=== PATIENT | female | born 1975 | race Caucasian/White ===

== ENCOUNTER 2024-06-22 01:37 | Observation (INO) | payer BC, SELFPAY ==
[2024-06-21 18:07] VITALS: BP 158/90
[2024-06-21 18:30] LABS: % Basophils 0.5 % (0-2); % Eosinophils 0.3 % (0-6); % Immature Granulocytes 0.3 % (0-0.5); % Lymphocytes 13.7 % (20.5-51.1); % Monocytes 4.6 % (1.7-9.3); % Neutrophils 80.6 % (42.2-75.2); Absolute Basophils 0.1 10^3/uL (0-0.2); Absolute Lymphocytes 1.4 10^3/uL (1.2-3.4); Absolute Monocytes 0.5 10^3/uL (0.1-0.6); Absolute Neutrophils 8.1 10^3/uL (1.4-6.5); Hematocrit 47.7 % (37.0-47.0); Mean Corp Hgb Conc. 33.5 g/dL (33.0-37.0); Mean Corpuscular Hgb 30.8 pg (27.0-31.0); Mean Corpuscular Volume 91.7 fL (81.0-99.0); Mean Platelet Volume 9.4 fL (7.4-10.4); Nucleated Red Blood Cells % 0 %; Platelet Count 305 10^3/uL (130-400); Red Cell Dist. Width 12.8 % (11.5-14.5)
[2024-06-21 18:31] LABS: Urine Albumin 2+ (Neg - Trace); Urine Bilirubin 3+ (Negative); Urine Character Slightly Cloudy (Clear); Urine Glucose Negative (Negative); Urine Ketone 2+ (Negative); Urine Leukocyte Negative (Negative); Urine Nitrite Positive (Negative); Urine Occult Blood 4+ (Negative); Urine Urobilinogen 2+ (Neg - 1+)
[2024-06-21 18:39] LABS: Urine Color Orange
[2024-06-21 18:56] LABS: ALT (SGPT) 37 U/L (0-35); AST (SGOT) 27 U/L (14-36); Albumin 4.6 g/dl (3.5-5.0); Alkaline Phosphatase 116 U/L (38-126); Blood Urea Nitrogen 12 mg/dl (7-17); Carbon Dioxide 24 mmol/L (22-30); Chloride 103 mmol/L (98-107); Glucose 105 mg/dl (70-99); Lipase 137 U/L (23-300); Sodium 139 mmol/L (135-145); Total Bilirubin 1.2 mg/dl (0.2-1.3); Total Protein 7.6 g/dl (6.3-8.2); eGFR > 60.00
[2024-06-21 19:01] LABS: Urine Red Blood Cell 26-30 /HPF (0-2); Urine Squamous Cell >30 /LPF (Few)
[2024-06-21 19:02] LABS: Urine Bacteria Few (Negative)
--- NOTE | 2024-06-21 20:53 | ED.GENMED ---
History of Present Illness
General
Chief Complaint: Urinary Symptoms
Source: patient and spouse
Exam Limitations: none
Time Seen by Provider: 06/21/24 20:01
Nursing documentation reviewed up to this point in time: agreed with
History of Present Illness
History of Present Illness:
This is a pleasant 48-year-old female who presents to the emergency department with subacute urinary tract infection. she states that she has been seen by an outside hospital on several occasions and started on antibiotics. First Levaquin, then
cefpodoxime and currently she is chcf through her course of Macrobid. She states that she has been having diffused abdominal pain. She had CAT scan at OSH which she states was negative. She is seeing Dr. Deleon,Uro-planer operator, who started
her on the Macrobid. Patient admits to a 26 pound weight loss over the last 3 weeks. Patient is concerned because she was lightheaded and passed out today.
Review of Systems
Review of Systems
Allergies reviewed?: Yes
All Other Systems: ROS reviewed and negative except as documented in HPI and ROS
Constitutional: Reports fever and weight loss
EENT: Reports no symptoms
Respiratory: Reports no symptoms
Cardiac: Reports no symptoms
ABD/GI: Reports abdominal pain and diarrhea
: Reports dysuria, frequency and urgency
Musculoskeletal: Reports no symptoms
Skin: Reports no symptoms
Neurological: Reports no symptoms
Endocrine: Reports no symptoms
Hematologic/Lymphatic: Reports no symptoms
Psychiatric: Reports anxiety
Phy Exam
General Physical Exam
General Presentation: mild distress
General age: appears older than age
General Skin: warm
General Habitus: normal
General Mental: alert
General Hydration: appears well hydrated
ENT Exam
ENT Exam: EOMI, pharynx normal, neck supple and normocephalic
Eye Exam
Eye Exam: PERRL, cornea clear and conjunctiva normal
Cardiovascular Exam
Cardiovascular Exam: regular rate/rhythm and no edema
Pulmonary Exam
Pulmonary Exam: lungs clear, no respiratory distress, no rales, no crackles, no rhonchi, no stridor, no wheezing and no cough
Gastrointestinal Exam
Gastrointestinal Exam: normal bowel sounds and tender
Neurological Exam
Neurological Exam: alert and oriented x3
Musculoskeletal Exam
Musculoskeletal Exam: full ROM
Skin Exam
Skin Exam: normal color, warm/dry, no rash and no petechia
Psychiatric Exam
Psychiatric Exam: anxious
Course
Orders/Labs/Results
Orders:
Orders
06/21/24 18:23
Complete Blood Count/With Diff Urgent
Comprehensive Metabolic Panel Urgent
HCG, Serum Qualitative Screen Urgent
Comment: ADD ON
Lipase Urgent
Urinalysis Reflex To Culture Urgent
Date Specimen was Collected: 06/21/24
Time Specimen was Collected: 18:13
Urine Microscopic Reflex Cult Urgent
Urine Culture Urgent
VANESSA Source: U
Specimen Description:
Date Specimen was Collected: 06/21/24
Time Specimen was Collected: 18:13
06/21/24 20:47
Straight cath- Treatment ONCE
06/21/24 20:49
CT Abd/pelvis W Iv Cont Urgent
Comment:
Reason For Exam: Diffuse abdominal pain with history subacute UTI
06/21/24 20:53
HYDROmorphone [Dilaudid] 1 mg IV NOW STA
Ondansetron Injectable [Zofran] 4 mg IV NOW STA
06/21/24 21:11
Add On- LAB Urgent
Tests Added?: hcg
06/21/24 21:52
Urinalysis Reflex To Culture Urgent
Date Specimen was Collected: 06/21/24
Time Specimen was Collected: 21:50
Urine Microscopic Reflex Cult Urgent
Urine Culture Urgent
VANESSA Source: U
Specimen Description:
Date Specimen was Collected: 06/21/24
Time Specimen was Collected: 21:50
06/21/24 21:57
Morphine Sulfate 4 mg .ROUTE .STK-MED ONE
06/21/24 21:58
Morphine Sulfate 4 mg IV NOW STA
06/21/24 23:46
Metoclopramide [Reglan] 10 mg IV NOW STA
Morphine Sulfate 4 mg IV NOW STA
Nitrofurantoin Monohydrate [Macrobid] 100 mg PO NOW STA
06/22/24 00:35
Electrocardiogram (*1) Urgent
Reason for Study: Syncope
EKG- Treatment ONCE
06/22/24 01:18
diazePAM [Valium Injection] 5 mg IV NOW STA
06/22/24 01:19
Admit/Transfer Patient As Directed
Co-Sign Provider:
Level of Care: Observation services
Assign to:: Medical/Surgical
Physician / Group: Roberto
Diagnosis: Interstitial Cystitis, Uncontrolled Anxiety
Code Status As Directed
Resuscitation Status: Full Code
PRN Pain Medication Management As Directed
May give lesser potent ordered pain med per pt: Yes
preference::
Protocol:: Medication orders for pain may be administered in a
manner that supports deferring to patient preference
when the pt is:
- Requesting an ordered lesser potent pain medication.
Least to most potent pain medications are defined
as: acetaminophen < NSAID < tramadol < opioids
(morphine, oxycodone, hydromorphone).
- Requesting a lesser dose of the same medication IF
ORDERED.
- Requesting a less intrusive route of administration
if both routes are prescribed by the provider (PO <
IV).
06/22/24 02:00
Flush (0.9% Sodium Chloride) [Flush (Nss)] See Dose Instructions IV PER PROTOCOL
06/22/24 02:54
Acetaminophen [Tylenol] 650 mg PO Q4HPRN PRN
HYDROmorphone [Dilaudid] 0.5 mg IV Q4HPRN PRN
Lactated Ringers [Lr] 1,000 ml IV 100 mls/hr
Lorazepam [Ativan] 1 mg PO Q6HPRN PRN
Ondansetron Injectable [Zofran] 4 mg IV Q6HPRN PRN
06/22/24 02:54
Consult Notification Routine
Specialty to Notify: Psychiatry
Date consulting provider notified: 06/22/24
Time consulting provider notified: 07:14
Notified:: Provider
Comment: Dr. Moe notified via tiger text
PSYCHIATRY CONSULT Routine
Consulting Provider: Joan Malcolm
Was physician already notified: No
Reason for consult: Uncontrolled Anxiety
Activity As Directed
Activity Level: Ambulate
I/O [Intake/ Output] As Directed
Frequency: Per unit guidelines
Vital Signs As Directed
Frequency: Per unit guidelines
DX Deep Vein Thrombosis Video Routine
06/22/24 Breakfast
Regular
At Your Request: Full Participation
06/22/24 07:04
Basic Metabolic Panel IN AM
Complete Blood Count/No Diff IN AM
06/22/24 08:00
Escitalopram Oxalate [Lexapro] 20 mg PO DAILY
06/22/24 18:00
Enoxaparin Sodium [Lovenox] 40 mg SC QPM
06/22/24 22:00
Quetiapine Fumarate [Seroquel] 100 mg PO HS
Abnormal Lab Results
06/21/24 06/21/24
18:23 21:52
Hct 47.7 H %
(37.0-47.0)
Absolute Neuts (auto) 8.1 H 10^3/uL
(1.4-6.5)
Neutrophils % 80.6 H %
(42.2-75.2)
Lymphocytes % 13.7 L %
(20.5-51.1)
Glucose 105 H mg/dl
(70-99)
ALT 37 H U/L
(0-35)
Urine Ketones 2+ A 2+ A
(Negative) (Negative)
Ur Occult Blood Reflex 4+ A 1+ A
(Negative) (Negative)
Urine Nitrite (Reflex) Positive A Positive A
(Negative) (Negative)
Urine Bilirubin 3+ A 3+ A
(Negative) (Negative)
Urine Urobilinogen 2+ A 2+ A
(Neg - 1+) (Neg - 1+)
Urine RBC 26-30 A /HPF
(0-2)
Urine WBC (Reflex) 11-15 A /HPF
(0-5)
Urine Bacteria (Reflex) Few A Few A
(Negative) (Negative)
Urine Albumin (Reflex) 2+ A 2+ A
(Neg - Trace) (Neg - Trace)
06/21/24 18:23
06/21/24 18:23
Vital Signs
Initial and Last Documented VS:
Initial Vital Signs
Temp Pulse Resp BP Pulse Ox
98.3 F 99 18 158/90 97
06/21/24 18:07 06/21/24 18:07 06/21/24 18:07 06/21/24 18:07 06/21/24 18:07
Last Documented Vital Signs
Temp Pulse Resp BP Pulse Ox
98.3 F 69 16 136/79 96
06/23/24 07:30 06/23/24 07:30 06/23/24 07:30 06/23/24 07:30 06/23/24 07:30
*Critical Care Note
Total Time (30-74mins, 75-104mins- exclusive of procedures): Not Applicable
Update Note
Update Note:
PROCEDURES: CT Abd/pelvis W Iv Cont
CLINICAL INDICATION: Diffuse abdominal pain with history subacute UTI . Nausea. Diarrhea. Hematuria.
COMPARISON: None.
FINDINGS:
Lower Chest:
Lung bases clear. No pleural effusion. Nonspecific trace pericardial effusion.
Abdomen:
Liver: Within normal limits.
Gallbladder: Absent.
Bile Ducts: No bile duct dilatation.
Pancreas: Within normal limits.
Spleen: Normal in size.
Adrenals: No adrenal mass.
Kidneys/Ureters: No renal or ureteral calculus. No bladder calculus. No obstructive uropathy. Few Subcentimeter renal cysts.
Bowel: Limited by lack of oral contrast. No obstruction or wall thickening.
Appendix: Absent.
Peritoneum: No ascites or free air.
Vessels: No aortic aneurysm.
Retroperitoneum: No retroperitoneal periaortic mass or adenopathy.
Abdominal Wall: No anterior abdominal wall hernia.
Pelvis:
No free fluid or focal collection. No inflammatory reaction. No sidewall adenopathy or mass.
Uterus and adnexal regions are unremarkable.
Intrauterine contraceptive device in place.
Bones:
No suspicious lesions.
IMPRESSION:
No renal, ureteral, or bladder calculus. No obstructive uropathy.
No specific bowel abnormality identified given limitations from lack of oral contrast.
ED Attending Note
-
Portions of this chart may have been created with voice recognition software.� Occasional wrong word or��sound alike� substitutions may have occurred due to the inherent limitations of voice recognition software.
Discharge Plan
Departure
Patient Disposition: Admit
Date of Disposition: 06/21/24
Time of Disposition: 23:47
Admit to: Med/Surg
Presentation/result/management discussed w/ accepting MD/DO: Hospitalist
Condition: Fair
Discharge Problem:
UTI (urinary tract infection), Abdominal pain, Nausea & vomiting, Anxiety
Interventions
Interventions:
*Risk Screen - Suicide Last Done: 06/22/24 03:11
*General Assessment Last Done: 06/21/24 18:07
*Neglect/Abuse Screening Last Done: 06/21/24 18:07
ED- Fall Risk Assessment Last Done: 06/22/24 02:50
*ED COVID-19 Vaccine History Last Done: 06/22/24 03:11
*Nursing Disposition Last Done: 06/22/24 02:50
ED-Female Genitourinary Assessment Last Done: 06/21/24 21:07
Discharge Date and Time
Discharge Date/Time: 06/22/24 02:51
[2024-06-21] MEDS: DILAUDID 1 MG IV (21:10)
[2024-06-21] MEDS: ZOFRAN 4 MG IV (21:10)
[2024-06-21 21:14] VITALS: BP 146/88
[2024-06-21 21:47] LABS: HCG, Serum Qualitative Screen Negative
[2024-06-21] MEDS: MORPHINE SULFATE 4 MG IV ×2 (21:59→23:58)
[2024-06-21 22:43] LABS: Urine Albumin 2+ (Neg - Trace); Urine Bilirubin 3+ (Negative); Urine Character Clear (Clear); Urine Color Red; Urine Glucose Negative (Negative); Urine Ketone 2+ (Negative); Urine Leukocyte Negative (Negative); Urine Nitrite Positive (Negative); Urine Occult Blood 1+ (Negative); Urine Specific Gravity 1.025 (<1.030); Urine Urobilinogen 2+ (Neg - 1+)
[2024-06-21 22:50] LABS: Urine Squamous Cell 26-30 /LPF (Few)
[2024-06-21 22:51] LABS: Urine Bacteria Few (Negative); Urine Mucus Few; Urine Red Blood Cell 0-2 /HPF (0-2); Urine White Cell 0-2 /HPF (0-5)
[2024-06-21 23:08] VITALS: BP 159/91
[2024-06-21] MEDS: MACROBID 100 MG PO (23:57)
[2024-06-21] MEDS: REGLAN 10 MG IV (23:58)
[2024-06-22] VITALS (8 sets, daily range): BP systolic 127–156; BP diastolic 64–103; BMI 40.6
[2024-06-22 00:14] LABS: Glucose - Point of Care 93 mg/dl (70-99)
--- NOTE | 2024-06-22 01:22 | HPS.HSE ---
Family Physician
-
Family Physician: ALIZE Chavarria
Chief Complaint
-
Anxiety, Abd Pain, Urinary Complaints
History of Present Illness
Patient is a 48y F with PMH significant for anxiety, PTSD, morbid obesity and interstitial cystitis who presents to ED complaining of abdominal pain, diarrhea, anxiety, weight loss, anorexia. Patient states that her symptoms started about 3
weeks ago with developed of dysuria and frequency. Her initial complaint was overwhelming anxiety which she notes is usually her first symptom of UTIs. Patient had urine culture done by her PCP which was normal. She was seen at [facility] ED x 2
and had 2 additional cultures which were also normal. She also had CT scan which was reportedly unremarkable.
Despite her negative cultures, patient notes that she was treated with course of levofloxacin and cefpodoxime. Her symptoms did not improve; however, she did develop loose stools and increased abdominal pain.
She was seen by her Uro-Second Rigger (Dr. Boothe) who suspected IC flare. A 4th urine culture was performed and this was reportedly positive.
Patient was started on Macrobid on 06/19. She notes still no improvement in her symptoms and presents to the ED this evening for further evaluation and treatment.
Medical History
Past Medical History
Past Medical History: Reports Other
Additional Past Medical History:
Fibromyalgia
IBS
Interstitial Cystitis
Anxiety / Depression / PTSD
Morbid Obesity
Melanoma
Past Surgical History: Reports Other
Additional Past Surgical History:
Appendectomy
Cholecystectomy
Melanoma Excision
Social History
Tobacco: Non-smoker
Alcohol: None
Drug: None
Personal:
Living: With Family
Family History
Family History: Not pertinent
Allergies / Home Medications
Allergies reflects when Allergies were last updated in [facility].
Home Medications with original date entered in [facility]
Allergy/Medication List:
Allergies
Allergy/AdvReac Type Severity Reaction Status Date / Time
ampicillin Allergy Unknown Verified 06/21/24 18:12
ciprofloxacin [From Cipro] Allergy Itching Verified 06/21/24 18:12
clindamycin Allergy Unknown Verified 06/21/24 18:12
haloperidol [From Haldol] Allergy Unknown Verified 06/21/24 18:12
ketamine Allergy Unknown Verified 06/21/24 18:12
Penicillins Allergy Unknown Verified 06/21/24 18:12
Sulfa (Sulfonamide Allergy Unknown Verified 06/21/24 18:12
Antibiotics)
Home Medications
escitalopram oxalate 20 mg tablet (Lexapro) 20 mg PO DAILY 06/22/24
ketorolac 30 mg/mL (1 mL) injection solution 30 mg IM QWEEK IBS flair 06/22/24
lorazepam 1 mg tablet (Ativan) 1 mg PO DAILY PRN anxiety 06/22/24
nitrofurantoin monohydrate/macrocrystals 100 mg capsule (Macrobid) 100 mg PO BID 06/22/24
phenazopyridine 95 mg tablet 95 mg PO BID 06/22/24
jvmgxgbba-stwpxqcdc-ygzfgeyb-scop 16.2 mg-0.1037 mg-0.0194 mg tablet (Phenohytro) 3 tab PO PRN PRN IBS pain 06/22/24
quetiapine 100 mg tablet (Seroquel) 100 mg PO HS 06/22/24
zolpidem 5 mg tablet (Ambien) 5 mg PO HS 06/22/24
Review of Systems
-
History Source: Patient
A 12 point ROS was completed and negative except as noted: Yes
Constitutional: Reports Fatigue; Denies Fever or Chills
Respiratory: Denies Cough or Trouble Breathing
Cardiac: Reports Other (Lightheadedness / dizziness); Denies Chest Pain or Palpitations
Abdomen/GI: Reports Abdominal Pain, Nausea, Diarrhea, Bloody Stools and Anorexia; Denies Vomiting or Black Stools
: Reports Dysuria, Frequency, Flank Pain and Urgency; Denies Incontinence
Musculoskeletal: Denies Joint Pain or Edema
Neurological: Reports Headache; Denies Dizzy
Psych: Reports Depression and Anxiety
Physical Exam
Vital Signs
Vital Signs
Temp Pulse Resp BP Pulse Ox
98.1 F 90 19 151/95 94
06/22/24 00:09 06/22/24 01:15 06/22/24 01:15 06/22/24 01:00 06/22/24 01:15
Physical Exam
General: Other (Tearful, anxious 48y F in mild distress due to anxiety)
HEENT: Moist mucous membranes, PERRLA and Other (Thick neck.)
Respiratory: Clear; No Wheezes, Rales or Rhonchi
Cardiac: S1/S2 and Regular Rhythm; No Murmur
GI: Other (Diffusely tender. No rebound / guarding. Pos BS.)
Musculoskeletal: No Clubbing, No Cyanosis and No Edema
Neuro: AO x 3
Psych: Anxious and Depressed
Laboratory Results
-
06/21/24 18:23
06/21/24 18:23
Laboratory Results
Total Bilirubin 1.2 mg/dl (0.2-1.3) 06/21/24 18:23
AST 27 U/L (14-36) 06/21/24 18:23
ALT 37 U/L (0-35) H 06/21/24 18:23
Alkaline Phosphatase 116 U/L (38-126) 06/21/24 18:23
Lipase 137 U/L (23-300) 06/21/24 18:23
Impression/Plan
-
A/P: Patient is a 48y F with PMH significant for fibromyalgia, IC and IBS who presents to ED complaining of abdominal pain, weight loss, urinary symptoms and anxiety x 3 weeks.
Anxiety / Depression with Acute Uncontrolled Anxiety
- Observe overnight for further evaluation and treatment.
- Patient indicates that her initial symptom - even prior to dysuria - was increased anxiety.
- Seems unlikely that this is a harbinger of UTI and note that 3 consecutive cultures were negative.
- Many subsequent symptoms (joint pain, abdominal pain, diarrhea, etc) are likely DUE TO antibiotics.
- Will endeavor to gain control of her anxiety first and foremost.
- Supportive care. Continue usual meds and add PRN BZDs for now.
- Formal Psychiatry evaluation for additional recommendations.
Interstitial Cystitis
Questionable UTI
- 3 negative cultures after initial symptoms and then most recent culture reportedly positive.
- Would observe off of any additional abx for now to avoid any additional adverse effects, side effects contributing to current presentation.
- Follow-up culture results here.
- Likely component of interstitial cystitis. ? additional of amitriptyline to current psychotropic med regimen if Psychiatry is agreeable.
- Monitor for any changes in symptoms.
- Follow-up with Dr. Boothe as an outpatient.
Fibromyalgia
IBS
- Some current symptoms of diffuse pain, abd pain, diarrhea, etc as noted above.
- Continue current medications + supportive care with antiemetics, pain control, etc.
- Follow for clinical improvement.
- Address underlying psychiatric process as noted above.
Reported Weight Loss
- Patient indicates 26 lbs of weight loss in the past 3 weeks which she attributes to poor PO intake and diarrhea.
- Labs are entirely unremarkable and that degree of weight loss seems unlikely without degree of metabolic derangement.
- Monitor for any changes in labs / further weight loss / etc.
Morbid Obesity
- Affects all aspects of care.
- Encourage healthy diet and regular exercise with goal of weight reduction.
DVT Prophylaxis: Lovenox
Code Status: Full
[2024-06-22] MEDS: VALIUM INJECTION 5 MG IV (01:27)
[2024-06-22] MEDS: LR 1000 IV ×2 (03:31→16:10)
[2024-06-22] MEDS: SEROQUEL 100 MG PO ×2 (03:31→21:43)
[2024-06-22] MEDS: DILAUDID 0.5 MG IV ×3 (07:41→20:30)
[2024-06-22] MEDS: LEXAPRO 20 MG PO (07:43)
[2024-06-22] MEDS: ZOFRAN 4 MG IV ×2 (07:53→16:11)
--- NOTE | 2024-06-22 08:01 | PTCARENOTE ---
Reporting 8/10 lower abd/bladder pain. Medicated w/ PRN Dilaudid and zofran d/t reports of opioids causing nausea.
[2024-06-22 08:18] LABS: Hemoglobin 13.4 g/dL (12.0-16.0); Mean Corp Hgb Conc. 33.5 g/dL (33.0-37.0); Mean Corpuscular Hgb 30.6 pg (27.0-31.0); Mean Corpuscular Volume 91.3 fL (81.0-99.0); Mean Platelet Volume 9.8 fL (7.4-10.4); Platelet Count 228 10^3/uL (130-400); Red Blood Cell Count 4.38 10^6/uL (4.20-5.40); Red Cell Dist. Width 12.8 % (11.5-14.5); White Blood Cell Count 9.1 10^3/uL (4.8-10.8)
[2024-06-22 08:53] LABS: Blood Urea Nitrogen 14 mg/dl (7-17); Calcium 9.1 mg/dl (8.4-10.2); Carbon Dioxide 23 mmol/L (22-30); Chloride 102 mmol/L (98-107); Estimated Creatinine Clearance 78 ml/min; Glucose 92 mg/dl (70-99); Potassium 3.7 mmol/L (3.5-5.1); Sodium 135 mmol/L (135-145); eGFR > 60.00
--- NOTE | 2024-06-22 09:51 | CM ---
Addendum entered by Ayanna Gupta 06/22/24 15:46:
No Skilled PT needed
Addendum entered by Ayanna Gupta 06/22/24 10:09:
OBS letter provided and explained; form signed @ 1000
Original Note:
Met with patient's spouse outside patient's room; patient on contact isolation; initial assessment completed
Pharmacy verified: [facility] @ [address], [place]
reported that they live in a multilevel home with their 2 adult children; 2 steps to enter, 14 steps between floors; railing present; powder room on main level; 2nd floor bath has walk-in shower
PLOF: reported that patient is independent with ambulation, stairs, and ADLs; drives; homemaker
No history of SNF or Home Health utilization
Spouse will transport home\\
Plan: Discharge to home; no needs anticipated
--- NOTE | 2024-06-22 10:23 | W.PN.HOSP.TC ---
Today's Communication/Plan
-
Monitor closely off antibiotics pending repeat urine cultures
Bladder scan
Urology consultation
Psychiatry consultation
Contemplating initiation of amitriptyline for presumed to be interstitial cystitis.
Looking for psychiatry input on overall adjustment of patient's chronic depression/anxiety medication regimen.
Assessment / Plan
Assessment / Plan
Impression
Patient is a 48y F with PMH significant for fibromyalgia, IC and IBS who presents to ED complaining of abdominal pain, weight loss, urinary symptoms and anxiety x 3 weeks.
Anxiety / Depression with Acute Uncontrolled Anxiety
- Observe overnight for further evaluation and treatment.
- Patient indicates that her initial symptom - even prior to dysuria - was increased anxiety.
- Seems unlikely that this is a harbinger of UTI and note that 3 consecutive cultures were negative.
- Many subsequent symptoms (joint pain, abdominal pain, diarrhea, etc) are likely DUE TO antibiotics.
- Will endeavor to gain control of her anxiety first and foremost.
- Supportive care. Continue usual meds and add PRN BZDs for now.
- Formal Psychiatry evaluation for additional recommendations.
Interstitial Cystitis
Questionable UTI
- 3 negative cultures after initial symptoms and then most recent culture reportedly positive.
- Would observe off of any additional abx for now to avoid any additional adverse effects, side effects contributing to current presentation.
- Follow-up culture results here.
- Likely component of interstitial cystitis. ? additional of amitriptyline to current psychotropic med regimen if Psychiatry is agreeable.
- Monitor for any changes in symptoms.
- Patient has been followed with urology Dr. Deleon. Reports fairly recent cystoscopy with no abnormalities
Fibromyalgia
IBS
- Some current symptoms of diffuse pain, abd pain, diarrhea, etc as noted above.
- Continue current medications + supportive care with antiemetics, pain control, etc.
- Follow for clinical improvement.
- Address underlying psychiatric process as noted above.
Reported Weight Loss
- Patient indicates 26 lbs of weight loss in the past 3 weeks which she attributes to poor PO intake and diarrhea.
- Labs are entirely unremarkable and that degree of weight loss seems unlikely without degree of metabolic derangement.
- Monitor for any changes in labs / further weight loss / etc.
Morbid Obesity
- Affects all aspects of care.
- Encourage healthy diet and regular exercise with goal of weight reduction.
DVT Prophylaxis: Lovenox
Code Status: Full
Anticipated Discharge: 24 - 48 hours
Subjective/Interval History
-
Date of Service: June 22, 2024
Objective Data
-
Labs:
Laboratory Results
06/22/24
07:04
WBC 9.1
Hgb 13.4
Hct 40.0
Plt Count 228 D
Sodium 135
Potassium 3.7
Chloride 102
Carbon Dioxide 23
BUN 14
Creatinine 1.1 H
Glucose 92
Calcium 9.1
Vital Signs:
Vital Signs
Temp Pulse Resp BP Pulse Ox
97.8 F 77 18 127/75 96
06/22/24 07:30 06/22/24 07:30 06/22/24 07:30 06/22/24 07:30 06/22/24 07:30
Physical Exam
-
General: Well Developed and No Apparent Distress
HEENT: Normocephalic, Atraumatic and Moist Mucous Membranes
Respiratory: Clear to Auscultation
Cardiac: Regular Rhythm and S1/S2; Negative Murmur, Rub or Gallop
GI: Soft, Nontender, Nondistended and Normal Bowel Sounds; Negative Organomegaly
Rectal: Deferred by Provider
Musculoskeletal: No Clubbing, No Cyanosis and No Edema
Skin: Negative Rash
Neuro: Nonfocal/Grossly Intact
--- NOTE | 2024-06-22 10:59 | CS.PSYCHR ---
Consult Summary - Psychiatry
-
Pt is a 48 y0 female with PMH significant for anxiety, PTSD, IBS, interstitial cystitis, who presented to ED complaining of abdominal pain, diarrhea, anxiety, weight loss, anorexia. Patient states that her symptoms started about 3 weeks ago with
dysuria and frequency, as well as increased anxiety attacks. Pt reported anxiety is usually her first sx of UTI. Urine culture done by her PCP was normal. She was seen at [facility] ED x 2 and had 2 additional cultures which were also
negative.Despite her negative cultures, pt reported that she was treated with course of levofloxacin and cefpodoxime. Her symptoms did not improve; however, she did develop loose stools and increased abdominal pain. She was seen by her
Uro-Breakdown Mill Operator (Dr. Boothe) who suspected IC flare. Pt was prescribed Amitriptyline 10 mg #60, took it one day, but did not continue, reports continued anxiety attacks, insomnia.
Pt is followed by Psychiatrist at [facility], has been on medications for anxiety for years. She reports she was worse when Lexapro was tapered below 20 mg QD. Pt takes Seroquel primarily for sleep, as well as anxiety, with limited
benefit, c/o restless legs, worse when she tried increasing to 150 mg. Pt has limit of Ativan once per day by Psychiatrist Dr Tapia; she would like to increase it. Ambien was tapered to 5 mg HS; pt states 10 mg was more effective. Pt on
Dilaudid prn here. Pt is known to this provider from previous contact at [facility] over 4 years ago. She presents similar to her previous baseline, with chronic anxiety.
Psych Hx: Outpatient med mgt and therapy at [facility] for years. States she has been on Lexapro for over 12 years
Psych Meds: Lexapro 20 mg QD, Seroquel 100 mg HS, Seroquel 25 mg prn for anxiety, Ambien 5 mg HS, Ativan 1 mg QD
MSE: alert, oriented, calm, cooperative, resting in bed. Affect dysphoric, slightly irritable- usual baseline, mood stable, mildly dysphoric. Speech articulate, Thought goal-directed. No signs of psychosis. No agitation. Insight fair
Imp: Unspecified anxiety, with recent anxiety attacks. Hx of PTSD
Rec: Would continue established psychotropic medication regimen.
Trial of Amitriptyline for IC and IBS could also benefit anxiety
Pt psychiatrically stable to return to Outpatient med mgt at [facility] when medically cleared
Will follow
--- NOTE | 2024-06-22 13:26 | CONS.URO ---
Medical History
History of Present Illness
04/[address] Deleon: '�This is a 38 year old who saw DR Grove in urology for chronic UTI's 10 years ago. She did not like him and then saw DR. Mckeon. She did not have a cysto with either. Everything got better for awhile.
�������Then in November 2022 'things got really bad.' She had kidney and flank pain. She did not have a fever but was told she had pyeloneprhitis. She had a CT at that time. She had enteritis and severe dehydraton (she was having N/V as well). At that
time she was also having SEVERE anxiety. She does have baseline anxiety but she felt like she was 'losing her mind.' Once the infection started to clear up her anxiety got better.
�������Since then, she has followed up with PCP in March. She was in ER 03/28 for b/l flank pain. She had a CT done that did not show anything. She was told to f/u with Urology.
�������Currently, patient still has residual flank pain on both sides. She has pain right now in her bladder region. She does not have dysuria.
�������She does have urgency and frequency all the time. She has nocturia x 1-2.
�������Denies leakage of urine.
�������She saw [facility] [employer] recently and had a pelvic US in the office and IUD looked good and pap smear normal in February.
�������Denies gross hematuria but she has been told she has microscopic hematuria.
�������She has IBS for 28 years.
�������She has a h/o fibromyalgia and IBS as well as probable undiagnosed endometriosis.
06/13/2024 Urine cx
Result: 10,000-49,000 CFU/mL of Enterococcus faecalis
E.faecalis

INT VANESSA
AMPICILLIN S <=2
NITROFURANTOIN S <=16
VANCOMYCIN S 1
Past Medical History
Past Medical History: Other (Fibromyalgia IBS Interstitial Cystitis Anxiety / Depression / PTSD Morbid Obesity Melanoma)
Past Surgical History: Other (Appendectomy Cholecystectomy Melanoma Excision)
Allergies/Home Medications
Allergies
Allergy/AdvReac Type Severity Reaction Status Date / Time
ampicillin Allergy Unknown Verified 06/21/24 18:12
ciprofloxacin [From Cipro] Allergy Itching Verified 06/21/24 18:12
clindamycin Allergy Unknown Verified 06/21/24 18:12
haloperidol [From Haldol] Allergy Unknown Verified 06/21/24 18:12
ketamine Allergy Unknown Verified 06/21/24 18:12
Penicillins Allergy Unknown Verified 06/21/24 18:12
Sulfa (Sulfonamide Allergy Unknown Verified 06/21/24 18:12
Antibiotics)
Home Medications
�Medication �Instructions �Recorded �Confirmed �Type
escitalopram oxalate 20 mg tablet 20 mg PO DAILY 06/22/24 06/22/24 History
(Lexapro)
ketorolac 30 mg/mL (1 mL) 30 mg IM QWEEK IBS flair 06/22/24 06/22/24 History
injection solution
lorazepam 1 mg tablet (Ativan) 1 mg PO DAILY PRN anxiety 06/22/24 06/22/24 History
nitrofurantoin 100 mg PO BID 06/22/24 06/22/24 History
monohydrate/macrocrystals 100 mg
capsule (Macrobid)
phenazopyridine 95 mg tablet 95 mg PO BID 06/22/24 06/22/24 History
cesmucpnw-wothhvypz-gdwduyvp-scop 3 tab PO PRN PRN IBS pain 06/22/24 06/22/24 History
16.2 mg-0.1037 mg-0.0194 mg tablet
(Phenohytro)
quetiapine 100 mg tablet (Seroquel) 100 mg PO HS 06/22/24 06/22/24 History
zolpidem 5 mg tablet (Ambien) 5 mg PO HS 06/22/24 06/22/24 History
Physical Exam
Vital Signs
Vital Signs
Temp Pulse Resp BP Pulse Ox
97.8 F 77 18 127/75 96
06/22/24 07:30 06/22/24 07:30 06/22/24 07:30 06/22/24 07:30 06/22/24 07:30
Lab / Testing Results
Laboratory Results
06/22/24 07:04
06/22/24 07:04
Assessment / Plan
-
Anxiety
Interstitial Cystitis
Persistent UTI
Rec: tx with penicillin; given that <<1% of patients whom report penicillin allergies actually do, while inpatient, an oral dose with monitoring for allergic response would be appropriate
no indication for surgical intervention
Data Reviewed
-
CT Scan: Image personally visualized and interpreted (normal)
Lab Data: Labs Reviewed
Old Records: Reviewed
[2024-06-22] MEDS: LR IV (14:21)
[2024-06-22] MEDS: ATIVAN 1 MG PO (14:22)
[2024-06-22] MEDS: TYLENOL 650 MG PO (14:27)
[2024-06-22] MEDS: LOVENOX 40 MG SC (16:10)
--- NOTE | 2024-06-22 17:34 | PHA.VAN.IN ---
Assessment
- Assessment
Renal Function: Unknown baseline
AUC Dosing Plan
- Dosing Variables
Dosing Weight (kg): 114
Dosing CrCl (ml/min): 78
Vd coefficient (L/kg): 0.6 - 0.7
- Empiric Dosing
Initial / Loading Dose: vanc 2000mg
Maintenance Regimen: vanc 1250mg Q12H
Estimated AUC (mcg*h/mL): 477 - 556
Estimated Peak (mcg*h/mL): 27.8 - 32.4
Estimated Trough (mcg/ml): 13.4 - 15.7
Estimated Half Life (H): 10
- Monitoring
No levels ordered at this time: consider levels in next few days
Pharmacokinetics Vancomycin I
- -
Patient Age: 48
Patient Sex: Female
Vancomycin Day #: 1
Indication: Genito-Urinary Tract
Requesting Provider: Dr. Lomas
Pertinent Antimicrobial Allergies:
penicillins - unknown
sulfa - unknown
ampicillin - unknown
ciprofloxacin - itching
clindamycin - C.Diff
Height / Weight:
Height 5 ft 6 in
Actual Weight 113.993 kg
IBW in k.3
Adjusted BW in k.2
Pertinent Past Medical History: BMI ~40
- Vital Signs / Lab Results
Temp Pulse Resp BP Pulse Ox
97.8 F 77 18 127/75 96
06/22/24 07:30 06/22/24 07:30 06/22/24 07:30 06/22/24 07:30 06/22/24 07:30
Lab Results - Hematology
06/21/24 06/22/24
18:23 07:04
WBC 10.0 9.1
Lab Results - Chemistry
06/21/24 06/22/24
18:23 07:04
BUN 12 14
Creatinine 1.0 1.1 H
Estimated Creat Clear 78
Albumin 4.6
Lab Results - Urine
06/21/24 06/21/24
18:23 21:52
Urine Nitrite (Reflex) Positive A Positive A
Leukocyte Esterase Rfl Negative Negative
Urine WBC (Reflex) 11-15 A 0-2
Ur Squamous Epith Cells >30 26-30
Urine Bacteria (Reflex) Few A Few A
Microbiology Results
06/21/24 18:23 Urine Culture - Final
Urine
[2024-06-22] MEDS: VANCOCIN 540 MG IV (18:14)
[2024-06-22] MEDS: MYLICON 80 MG PO (18:14)
[2024-06-22] MEDS: TUMS CHEWABLE TABLET 200 MG PO (21:02)
[2024-06-22] MEDS: AMBIEN 5 MG PO (21:43)
[2024-06-23] MEDS: TUMS CHEWABLE TABLET 200 MG PO ×2 (02:48→07:36)
[2024-06-23] MEDS: DILAUDID 0.5 MG IV ×3 (02:48→12:48)
[2024-06-23] MEDS: MYLICON 80 MG PO ×3 (02:48→13:06)
[2024-06-23] MEDS: VANCOCIN 275 MG IV (05:26)
[2024-06-23 07:30] VITALS: BP 136/79
[2024-06-23] MEDS: LEXAPRO 20 MG PO (07:36)
--- NOTE | 2024-06-23 12:16 | W.PN.URO.CBU ---
Today's Communication / Plan
-
rec: home on symptomatic meds -- psychotropics per psychiatry
f/u with Dr Deleon
Assessment / Plan
-
IC
negative urine cx
Diagnosis
-
Date of Service: June 23, 2024
-
Patient Diagnosis:
IC
recent UTI
Objective
-
Vital Signs
Temp Pulse Resp BP Pulse Ox
98.3 F 69 16 136/79 96
06/23/24 07:30 06/23/24 07:30 06/23/24 07:30 06/23/24 07:30 06/23/24 07:30
Intake and Output
06/22/24 06/23/24 06/24/24
06:59 06:59 06:59
Intake Total 720 / 720
Output Total 275 / 275
Balance 445 / 445
Intake:
Oral fluids 720 / 720
Output:
Urine, Voided 275 / 275
Other:
Number of approximated MODERATE 1 4
amounts of urine
Laboratory Results
06/22/24 07:04
06/22/24 07:04
urine cx: no growth
Physical Exam
-
General - adult female in bed
[2024-06-23] MEDS: ATIVAN 1 MG PO (12:49)
[2024-06-23] MEDS: ZOFRAN 4 MG IV (12:49)
--- NOTE | 2024-06-23 12:51 | CON.ID ---
Consultation
-
Date/Time Consultation Requested: 06/23/24 12:00
Date/Time Consultation Performed: 06/23/24 12:52
Requesting Provider: Dr Lomas
Performing Provider: Dr Rodrigues
Reason for Consultation: abodminal pain, dysuira, frequency
Chief Complaint / Past History
Chief Complaint
abdominal pain, dysuria
History of Present Illness
Ms Stratton is a 48 year old female with history of interstitial cystitis, chronic anxiety, class III obesity who presented here 06/22 for dysuria, frequency, abdominal pain, diarrhea, anorexia. Dysuria began about 3 weeks prior to arrival with
exacerbation of her chronic anxiety which she feels is her UTI-symptoms equilivant. She reports 3 outpatient urine cultures which were negative and has undergone treatment with levofloxacin and cefpodoxime. Symptoms did not improve and she
progressed to loose stools. She saw Dr Boothe (uro-photo cartographer) who suspected IC flare, 4th urine culture was reportedly positive. She was started on macrobid but reported no improvement in symptoms and presented to the ER.
Since arrival here she has been afebrile, bp stable, wbc initially 10 today 9.1, hgb 13.4, plt 228, L shift was noted on arrival, cr 1.0, lfts essentially normal, hcg negative, first UA 2 >30 squamous cells and 11-15 wbcs; second UA 06/21 26-30
squamous cells and 0-2 wbcs, 2/ urine culture with 10-49K e faecalis, 06/21 CT a/p: no obstructive uropathy, first 06/21 first urine culture on 30K mixed deborah, second urine culture finalized negative. Seen by urology who comment patient has
intersitial cystitis. She has been on vancomycin and reports improvement (was also started on amitriptyline)
Past History
Additional Past Medical History:
Fibromyalgia
IBS
Interstitial Cystitis
Anxiety / Depression / PTSD
Morbid Obesity
Melanoma
Additional Past Surgical History:
Appendectomy
Cholecystectomy
Melanoma Excision
Allergy History:
ampicillin Allergy (Verified 06/21/24 18:12)
Unknown
ciprofloxacin [From Cipro] Allergy (Verified 06/21/24 18:12)
Itching
clindamycin Allergy (Verified 06/21/24 18:12)
Unknown
haloperidol [From Haldol] Allergy (Verified 06/21/24 18:12)
Unknown
ketamine Allergy (Verified 06/21/24 18:12)
Unknown
Penicillins Allergy (Verified 06/21/24 18:12)
Unknown
Sulfa (Sulfonamide Antibiotics) Allergy (Verified 06/21/24 18:12)
Unknown
Medications Reviewed: Yes
Social History
Tobacco: Non-Smoker
Alcohol: None
Drug: None
Family History
Family History: Not Pertinent
Review of Systems
Review of Systems
General: Negative Fever or Chills
All systems: All other systems were reviewed and were negative
Vital Signs
Temp Pulse Resp BP Pulse Ox
98.3 F 69 16 136/79 96
06/23/24 07:30 06/23/24 07:30 06/23/24 07:30 06/23/24 07:30 06/23/24 07:30
Physical Exam
Physical Exam
Constitutional: No Acute Distress and Obese
Cardiovascular: Regular Rate and S1/S2; Negative Murmur or Rub
Pulmonary: Clear and Symmetric; Negative Wheezes, Rales or Rhonchi
Gastrointestinal: Soft, Non Tender, Non Distended and Normal Bowel Sounds
Skin: Warm and Dry; Negative Rash or Jaundice
Lab / Diagnostic Study Results
06/22/24 07:04
06/22/24 07:04
Abs Immat Gran (auto) 0.0 10^3/uL (0-0.05) 06/21/24 18:23
Absolute Neuts (auto) 8.1 10^3/uL (1.4-6.5) H 06/21/24 18:23
Absolute Lymphs (auto) 1.4 10^3/uL (1.2-3.4) 06/21/24 18:23
Absolute Monos (auto) 0.5 10^3/uL (0.1-0.6) 06/21/24 18:23
Absolute Basos (auto) 0.1 10^3/uL (0-0.2) 06/21/24 18:23
Immature Gran % 0.3 % (0-0.5) 06/21/24 18:23
Neutrophils % 80.6 % (42.2-75.2) H 06/21/24 18:23
Lymphocytes % 13.7 % (20.5-51.1) L 06/21/24 18:23
Monocytes % 4.6 % (1.7-9.3) 06/21/24 18:23
Eosinophils % 0.3 % (0-6) 06/21/24 18:23
Basophils % 0.5 % (0-2) 06/21/24 18:23
Ur Squamous Epith Cells 26-30 /LPF (Few) 06/21/24 21:52
Microbiology Results
Micro:
06/21/24 21:52 Urine Culture - Final
Urine NO GROWTH
06/21/24 18:23 Urine Culture - Final
Urine
Assessment / Plan
Interstitial Cystitis
Reported allergies: penicillin, ampicillin, ciprofloxacin, clindamycin, sulfa
outpatient urine culture low colony count of e faecalis prior to effective antibiotics for e faeclais - this is colonization not partial treatment
attribute improvement to placebo effect and possibly early effect of amitriptyline
stable for dc from ID perspective; ID service will no longer actively follow this patient, patient to follow up with her urogynecologist
Care Review
Plan reviewed with: Physician (Dr Lomas)
--- NOTE | 2024-06-23 14:23 | W.DS.TRANS ---
DC Summary - [facility] Administrator
-
Discharge Instructions:
Discharge Diagnosis/Procedures Interstitial cystitis
Diet Regular
Instructions:
Stand-Alone Forms:
Changes to Home Medications: Yes
Discharge Medications:
DC Medications w/original date entered in [facility]
escitalopram oxalate 20 mg tablet (Lexapro) 20 mg PO DAILY Depression 06/22/24
ketorolac 30 mg/mL (1 mL) injection solution 30 mg IM QWEEK IBS flair 06/22/24
lorazepam 1 mg tablet (Ativan) 1 mg PO DAILY PRN anxiety 06/22/24
phenazopyridine 95 mg tablet 95 mg PO BID Urinary Issue 06/22/24
xzubgxzzv-waijjwjji-cjxwsgta-scop 16.2 mg-0.1037 mg-0.0194 mg tablet (Phenohytro) 3 tab PO PRN PRN IBS pain 06/22/24
quetiapine 100 mg tablet (Seroquel) 100 mg PO HS Mental Health/Anxiety 06/22/24
zolpidem 5 mg tablet (Ambien) 5 mg PO HS Sleep 06/22/24
acetaminophen 300 mg-codeine 60 mg tablet 1 tab PO Q8H PRN Pain #20 tabs 06/23/24
phenazopyridine 200 mg tablet 200 mg PO TID PRN dysuria #30 tabs 06/23/24
Home Medication Changes
Patient has been initiated on Amitriptyline and has medication at home not listed on this list.
Pending Results: No
== END 2024-06-23 16:34 | disposition home or self-care (01) ==
LOC: 4 WEST ACU 01:37
PROVIDERS: Emergency Medicine; ADMITTING PHYSICIAN Hospitalist; ATTENDING PHYSICIAN Internal Medicine; CONSULT PHYSICIAN Specialist; EMERGENCY PHYSICIAN Student in an Organized Health Care Education/Training Program; FAMILY PHYSICIAN Nurse Practitioner Family; OTHER PHYSICIAN Psychiatry & Neurology Psychiatry; OTHER PHYSICIAN Student in an Organized Health Care Education/Training Program
DX: N30.11 Interstitial cystitis (chronic) with hematuria (principal); R30.0 Dysuria; R39.15 Urgency of urination; R35.1 Nocturia; R10.9 Unspecified abdominal pain; R63.4 Abnormal weight loss; R42 Dizziness and giddiness; R55 Syncope and collapse; R31.29 Other microscopic hematuria; R19.7 Diarrhea, unspecified; R63.0 Anorexia; F41.9 Anxiety disorder, unspecified; F32.A Depression, unspecified; R11.2 Nausea with vomiting, unspecified; F43.10 Post-traumatic stress disorder, unspecified; E66.01 Morbid (severe) obesity due to excess calories; Z68.41 Body mass index [BMI] 40.0-44.9, adult; Z87.440 Personal history of urinary (tract) infections; E66.813 Obesity, class 3; M79.7 Fibromyalgia; K58.9 Irritable bowel syndrome, unspecified; Z85.820 Personal history of malignant melanoma of skin; Z90.49 Acquired absence of other specified parts of digestive tract; Z88.0 Allergy status to penicillin; Z88.2 Allergy status to sulfonamides; Z88.8 Allergy status to other drugs, medicaments and biological substances; Z88.1 Allergy status to other antibiotic agents; Z79.899 Other long term (current) drug therapy
CPT/HCPCS: 51701; 74177; 80048; 80053; 81003; 81015; 82962; 83690; 84703; 85025; 85027; 87086; 93005; 96374; 96375; 96376; 99285; G0378; Q9967